=== PATIENT | female | born 1945 | race Caucasian/White ===

== ENCOUNTER 2020-07-24 11:34 | Emergency (ER) | payer MEDICARE, OTHER, SELFPAY ==
[2020-07-24 11:49] VITALS: BP 155/94; PULSE 75; RESP 18; TEMP 36.8; O2SAT 98; BMI 23.3
--- NOTE | 2020-07-24 11:52 | XR_ITS ---
PROCEDURE: XR LUMBAR SPINE 2-3V CLINICAL INDICATION: fall COMPARISON: No exams were available for comparison FINDINGS: The lumbar spine is tilted to the right possibly due to positioning of the patient and or possibly due to muscle spasm. There is disc space narrowing and marginal osteophytic spurring at the L2-3 and L3-4 levels. There is no acute compression fracture. The SI joints are normal. There multiple surgical clips or eliane in a circumferential pattern lower mid abdomen probably due to previous ventral hernia repair . IMPRESSION: Degenerate changes lower lumbar spine, no acute bony pathology noted Dictated by: Dr. Eulalio Huerta MD 07/24/2020 14:39 Dr. Eulalio Huerta MD in [place] 07/24/2020 14:39
--- NOTE | 2020-07-24 11:52 | XR_ITS ---
PROCEDURE: XR WRIST LT MIN 3V CLINICAL INDICATION: fall COMPARISON: No exams were available for comparison FINDINGS: The distal radius and ulna appear intact. The carpal bones all appear normal. The soft tissues are normal. IMPRESSION: No acute findings. Dictated by: Dr. Eulalio Huerta MD 07/24/2020 14:37 Dr. Eulalio Huerta MD in [place] 07/24/2020 14:37
--- NOTE | 2020-07-24 11:52 | XR_ITS ---
PROCEDURE: XR ELBOW LT MIN 3V CLINICAL INDICATION: fall COMPARISON: No exams were available for comparison FINDINGS: No fracture or dislocation. No lytic or blastic change. There is normal mineralization. The joint spaces are well-preserved. No significant degenerative/arthritic changes. No erosive changes evident. Other findings:None. IMPRESSION: No acute findings. Dictated by: Dr. Eulalio Huerta MD 07/24/2020 14:36 Dr. Eulalio Huerta MD in [place] 07/24/2020 14:36
--- NOTE | 2020-07-24 11:52 | XR_ITS ---
PROCEDURE: XR HIP LT 2-3V W/PELVIS CLINICAL INDICATION: fall COMPARISON: No exams were available for comparison FINDINGS: No fracture or dislocation is evident. No significant degenerative change though there is mild asymmetrical joint space narrowing of both hips. No lytic or blastic change. Unremarkable soft tissues. IMPRESSION: Mild osteoarthritic change of both hips Dictated by: Dr. Eulalio Huerta MD 07/24/2020 14:41 Dr. Eulalio Huerta MD in [place] 07/24/2020 14:41
--- NOTE | 2020-07-24 11:53 | XR_ITS ---
PROCEDURE: XR HUMERUS LT CLINICAL INDICATION: fall COMPARISON: No exams were available for comparison FINDINGS: No fracture or dislocation. No lytic or blastic change. There is normal mineralization. The joint spaces are well-preserved. No significant degenerative/arthritic changes. No erosive changes evident. Other findings:None. IMPRESSION: No acute findings. Dictated by: Dr. Eulalio Huerta MD 07/24/2020 14:36 Dr. Eulalio Huerta MD in [place] 07/24/2020 14:36
--- NOTE | 2020-07-24 11:54 | XR_ITS ---
PROCEDURE: XR RIBS LT 2V CLINICAL INDICATION: fall COMPARISON: CR [id number] VIEWS from 01/23/2014 FINDINGS: The lung kwon are well expanded and appear clear of infiltrate. All left ribs 1 through 12 are visualized and appear intact with no evidence of recent or old fracture. There is no pneumothorax. Cardiac size is normal and there is no pleural fluid. There is a small to moderate-sized hiatal hernia. There degenerate changes of both shoulders with bilateral high-riding humeral heads IMPRESSION: No acute findings. Dictated by: Dr. Eulalio Huerta MD 07/24/2020 14:35 Dr. Eulalio Huerta MD in [place] 07/24/2020 14:35
--- NOTE | 2020-07-24 11:56 | HMH.EDUTC ---
[facility] [place] Clinical Impression: Contusion Qualifiers: Encounter type: initial encounter Contusion area: hip Laterality: left Qualified Code(s): S70.02XA - Contusion of left hip, initial encounter Disposition: Home, Self-Care Condition on Discharge: Good Instructions: DI for Rib Contusion, DI for Contusion Additional Instructions: ice for 20 mins may repeat once a hour as need Tylenol or Motrin as needed follow up with pcp if symptoms worsen or no improvement return or be seen in ed Referrals: Yudelka Noel [Primary Care Provider] - Time of Disposition: 13:41 Medical Decision Making - Nick Inquiry Pt receiving controlled substance: No Vital Signs: 07/24/20 11:49 Temperature 98.2 F Temperature Source Oral Pulse Rate [Right Brachial] 75 Respiratory Rate 18 Blood Pressure [Right Arm] 155/94 H Blood Pressure Mean [Right Arm] 114 Blood Pressure Source [Right Arm] Automatic Cuff Blood Pressure Position [Right Arm] Sitting 02 Sat by Pulse Oximetry 98 Oxygen Delivery Method Room Air Orders (Tests/Meds): ORDERS Category Date Time Status XR elbow LT min 3V Stat Exams 07/24/20 11:52 Taken XR hip LT 2-3V w/pelvis Stat Exams 07/24/20 11:52 Taken XR humerus LT Stat Exams 07/24/20 11:53 Taken XR lumbar spine 2-3V Stat Exams 07/24/20 11:52 Taken XR ribs LT 2V Stat Exams 07/24/20 11:54 Taken XR wrist LT min 3V Stat Exams 07/24/20 11:52 Taken [facility] [place] - General Chief complaint: Urgent Treatment Center Stated complaint: [id number] left ribs and elbow,home accident Time Seen by Provider: 07/24/20 11:56 Mode of Arrival: Ambulatory Source of Information: Patient Limitations: No Limitations Description of Symptoms (Recalled from Triage Doc. by RN): PATIENT STATES APPROX 2200 SHE WAS STEPPING OVER HER DOG AND FELL. C/O PAIN TO LEFT SIDE AND LEFT ELBOW/UPPER ARM. DENIES HITTING HEAD, LOC HEENT Symptoms (Recalled from RN notes): No Resp Symptoms (Recalled from RN notes): No Skin Symptoms (Recalled from RN notes): No MS Symptoms (Recalled from RN notes): Yes Functional Status (Recalled from RN notes): WNL - History of Present Illness Provider Complaint: 74 yr old female presents for pain on left side s/p fall last pm. Pt states she tried to not step on her dog but missed the step and fell down 4 steps and landed on the landing on left side. c/o of left arm,elbow, back,rib and hip pain. denies soa. - Related Data Home Medications Medication Instructions Recorded Confirmed Baclofen [Lioresal 10mg tablet] 10 mg PO DAILY 07/24/20 07/24/20 Gabapentin [Gabapentin 400mg Cap] 400 mg PO BID 07/24/20 07/24/20 Meloxicam [Mobic 15 mg tab] 15 mg PO DAILY 07/24/20 07/24/20 Temazepam [Restoril] 30 mg PO HS 07/24/20 07/24/20 clonazePAM [Clonazepam] 0.5 mg PO QID 07/24/20 07/24/20 Allergies Allergy/AdvReac Type Severity Reaction Status Date / Time morphine Allergy Unknown Verified 06/08/19 11:23 sulfamethoxazole Allergy Unknown Verified 06/08/19 11:23 [From Bactrim] trimethoprim [From Bactrim] Allergy Unknown Verified 06/08/19 11:23 - Worker's Comp Is this a Worker's Comp case?: No H History - Hepatitis A Screen Drug use history?: No High risk sexual behaviors?: No History of sexually transmitted infection?: No Currently employed?: No Childcare worker?: No Do you have indoor plumbing?: Yes Do you have electricity?: Yes Attestation statement:: This patient has been screened for Hepatitis A risk factors. I have reviewed the patient's past medical history: Yes - Social History Alcohol Intake: never Occupational Status: other ROS Obtained: Yes Systems reviewed as appropriate & no additional complaints - Constitutional Constitutional: Reports system reviewed and no additional complaints, except as docu, Denies fever(s) - Eyes Eyes: Reports system reviewed and no additional complaints, except as docu, Denies change in vision - ENT Ears, Nose, Mouth, and Throat:
[2020-07-24 13:42] VITALS: BP 155/94; PULSE 75; RESP 18; TEMP 36.8; O2SAT 98
== END 2020-07-24 13:45 | disposition home or self-care (01) ==
PROVIDERS: Emergency Provider Nurse Practitioner Family; PCP Family Medicine
DX: S70.02XA Contusion of left hip, initial encounter (principal); W01.0XXA Fall on same level from slipping, tripping and stumbling without subsequent striking against object, initial encounter; Y92.019 Unspecified place in single-family (private) house as the place of occurrence of the external cause; Z88.2 Allergy status to sulfonamides; Z88.5 Allergy status to narcotic agent
CPT/HCPCS: 71100; 72100; 73060; 73080; 73110; 73502; 99201

== ENCOUNTER 2022-06-28 09:36 | Emergency (ER) | payer MEDICARE, OTHER, SELFPAY ==
[2022-06-28 09:42] VITALS: BP 138/80; PULSE 108; RESP 18; O2SAT 97; BMI 23.3
[2022-06-28 09:57] VITALS: BP 138/80; PULSE 108; RESP 18; TEMP 36.8; O2SAT 97; BMI 23.3
--- NOTE | 2022-06-28 10:03 | EXP.UTC ---
Discharge Plan Disposition Patient Disposition: Home, Self-Care Condition: Good Prescriptions Prescriptions: New methylprednisolone 4 mg Tablets,Dose Pack 4 mg PO DIRECTED Qty: 21 0RF triamcinolone acetonide 0.1 % cream 1 applic topical BID Qty: 30 0RF No Action meloxicam 15 MG tablet 15 mg PO DAILY clonazepam 0.5 MG tablet 0.5 mg PO QID gabapentin 400 MG capsule 400 mg PO BID temazepam 30 MG capsule 30 mg PO HS baclofen 10 MG tablet 10 mg PO DAILY Referrals Follow up/Referrals: Yudelka Noel [Primary Care Provider] - See instructions Clinical Impressions Clinical Impression: Accidental insect sting Instructions Patient Instructions: Insect Bites and Stings Discharge ED Provider: Gerry Fernandez [facility] [place] General Stated complaint: multiple bee stings Mode of Arrival: Ambulatory Source of Information: Patient Limitations: No Limitations Time Seen by Provider: 06/28/22 09:49 Description of Symptoms (Recalled from Triage Doc. by RN): BEE STING TO RIGHT THIGH HEENT Symptoms (Recalled from RN notes): No Resp Symptoms (Recalled from RN notes): No Skin Symptoms (Recalled from RN notes): Yes MS Symptoms (Recalled from RN notes): No Functional Status (Recalled from RN notes): NA History of Present Illness Provider Complaint: She states that she was stung 4 times on her right hip by a wasp yesterday. She has continued to have swelling and itching of the sites on her right hip. Related Data Home Medications Medication Instructions Recorded Confirmed baclofen 10 mg tablet 10 mg PO DAILY BACK PAIN 07/24/20 07/24/20 clonazepam 0.5 mg tablet 0.5 mg PO QID Anxiety 07/24/20 07/24/20 gabapentin 400 mg capsule 400 mg PO BID Pain 07/24/20 07/24/20 meloxicam 15 mg tablet 15 mg PO DAILY BACK PAIN 07/24/20 07/24/20 temazepam 30 mg capsule 30 mg PO HS SLEEP 07/24/20 07/24/20 Previous Rx's Medication Instructions Recorded methylprednisolone 4 mg tablets in 4 mg PO DIRECTED #21 tabs 06/28/22 a dose pack triamcinolone acetonide 0.1 % 1 applic topical BID #30 grams 06/28/22 topical cream Allergies Allergy/AdvReac Type Severity Reaction Status Date / Time morphine Allergy Unknown Verified 06/08/19 11:23 sulfamethoxazole Allergy Unknown Verified 06/08/19 11:23 [From Bactrim] trimethoprim [From Bactrim] Allergy Unknown Verified 06/08/19 11:23 Worker's Comp Is this a Worker's Comp case?: No PFSH [facility] Social History Smoking Status: Never smoker alcohol intake: never current occupational status: other Travel in the last 8 weeks: None ROS Obtained: Yes All systems reviewed & no additional complaints except as documented Constitutional Constitutional: Reports system reviewed and no additional complaints, except as documented, Denies chills and Denies fever(s) Eyes Eyes: Denies eye discharge ENT Ears, Nose, Mouth, and Throat: Denies dysphagia, Denies sore throat and Denies throat swelling Cardiovascular Cardiovascular: Denies chest pain and Denies dyspnea Respiratory Respiratory: Denies chest congestion, Denies cough and Denies dyspnea Gastrointestinal Gastrointestingal: Denies abdominal pain, constipation, diarrhea, dysphagia, nausea or vomiting Musculoskeletal Musculoskeletal: Denies arthralgias Integumentary/Breasts Skin/Breast: Denies rash Neurologic Neurologic: Denies paresthesias Allergic/Immunologic Allergic/Immunologic: Denies throat swelling Physical Exam General General appearance: alert and in no apparent distress Head Head exam: atraumatic, normocephalic and normal inspection Eye Eye exam: Present normal appearance, PERRL and EOMI ENT ENT exam: Present normal exam, normal oropharynx, mucous membranes moist, TM's normal bilaterally and normal external ear exam Neck Neck exam: Present normal inspection, full ROM and trachea midline; Absent meningismus or lymphadenopathy [facility]
[2022-06-28 10:50] VITALS: BP 138/80; PULSE 108; RESP 18; TEMP 36.8; O2SAT 97
== END 2022-06-28 10:50 | disposition home or self-care (01) ==
LOC: ER 09:44 → UTC 09:44
PROVIDERS: Emergency Provider Nurse Practitioner Family; PCP Family Medicine
DX: T63.441A Toxic effect of venom of bees, accidental (unintentional), initial encounter (principal)
CPT/HCPCS: 96372; 99212; G0463

== ENCOUNTER → 2023-03-04 11:15 | Outpatient (CLI) | payer MEDICARE, OTHER, SELFPAY ==
--- NOTE | 2023-03-04 11:25 | XR_ITS ---
FINAL REPORT CLINICAL HISTORY: PNEUMONIA FINDINGS: 2 views of the chest were obtained . The heart is normal in size. There is a large hiatal hernia. The mediastinum is within normal limits. The lungs are clear. There is no pneumothorax. Osseous structures are unremarkable. IMPRESSION: No acute cardiopulmonary process. Reviewed, Interpreted and Dictated by Cleo Sweeney MD Transcribed by Phyllis Adams Authenticated and [facility]
== END ==
PROVIDERS: PCP Family Medicine; Visit Provider Family Medicine
DX: J18.9 Pneumonia, unspecified organism (principal)
CPT/HCPCS: 71046

== ENCOUNTER 2023-06-24 10:01 | Outpatient (CLI) | payer MEDICARE, OTHER, SELFPAY ==
[2023-06-24 10:09] VITALS: BMI 23.3
[2023-06-24 10:27] LABS: Albumin Level 4.2 g/dl (3.5-5.0)
[2023-06-24 10:30] LABS: Calcium 9.5 mg/dl (8.4-10.2); Creatinine Clearance Estimated 45 mL/min (50-200); Estimated Glomerular Filt Rate 48 ml/min (>60); GFR (African American) 58 ML/MIN (>60)
[2023-06-24 10:51] VITALS: BP 138/80; PULSE 82; RESP 18; O2SAT 97
[2023-06-24 11:10] VITALS: BP 137/82; PULSE 81; RESP 18; O2SAT 97
== END 2023-06-24 11:10 | disposition home or self-care (01) ==
LOC: INF 10:02
PROVIDERS: PCP Family Medicine; Visit Provider Family Medicine
DX: M81.0 Age-related osteoporosis without current pathological fracture (principal)
CPT/HCPCS: 82040; 82310; 82565; 96374; J3489

== ENCOUNTER 2025-06-02 09:50 | Outpatient (CLI) | payer MEDICARE, OTHER, SELFPAY ==
--- NOTE | 2025-06-02 10:03 | XR_ITS ---
FINAL REPORT TECHNIQUE: Standing thoracolumbar spine for scoliosis evaluation CLINICAL HISTORY: .sciolosis COMPARISON: None FINDINGS: THORACOLUMBAR STANDING SPINE: 3 standing views of the thoracolumbar spine were obtained. There is 30 degrees of levoscoliosis of the lumbar spine. A large hiatal hernia is identified. There is marked disc space narrowing noted at the L2-3, L3-4, and L4-5 levels. IMPRESSION: 30 degrees of levoscoliosis of the lumbar spine, with degenerative changes present as well. A large hiatal hernia is present. Reviewed, Interpreted and Dictated by Julian Mcfarland MD Transcribed by Adia Fernandez Authenticated and [facility]
--- NOTE | 2025-06-02 10:03 | XR_ITS ---
FINAL REPORT TECHNIQUE: 3 views CLINICAL HISTORY: .neck pain COMPARISON: None FINDINGS: AP, lateral and odontoid views of the cervical spine were obtained. There is no prior exam for comparison. There is no acute fracture or malalignment. Vertebral body height is preserved. There is moderate disc space narrowing of the C5-6 level. Posterior osteophytes are noted. Heterotrophic changes of degenerative disc disease are present. The precervical soft tissues are normal. IMPRESSION: Degenerative changes, with no acute process. Reviewed, Interpreted and Dictated by Julian Mcfarland MD Transcribed by Adia Fernandez Authenticated and [facility]
--- NOTE | 2025-06-02 10:04 | XR_ITS ---
FINAL REPORT CLINICAL HISTORY: PAIN COMPARISON: None FINDINGS: LEFT HIP: 3 views of the left hip demonstrate no acute fracture or dislocation. The joint spaces appear normal. The visualized bony structures are well aligned. No soft tissue abnormality is seen. There are anchors in the lower abdominal wall secondary to prior mesh placement. IMPRESSION: No acute bony abnormality. Reviewed, Interpreted and Dictated by Julian Mcfarland MD Transcribed by Adia Fernandez Authenticated and [facility]
== END 2025-06-02 23:59 | disposition home or self-care (01) ==
LOC: RAD 09:58
PROVIDERS: PCP Family Medicine; Visit Provider Family Medicine
DX: M41.86 Other forms of scoliosis, lumbar region (principal); M47.812 Spondylosis without myelopathy or radiculopathy, cervical region; M47.816 Spondylosis without myelopathy or radiculopathy, lumbar region; K44.9 Diaphragmatic hernia without obstruction or gangrene; M25.559 Pain in unspecified hip
CPT/HCPCS: 72040; 72081; 73502

== ENCOUNTER 2025-08-13 09:06 | Outpatient (CLI) | payer MEDICARE, OTHER, SELFPAY ==
--- NOTE | 2025-08-13 09:11 | XR_ITS ---
FINAL REPORT CLINICAL HISTORY: SCREENING prior 2015 COMPARISON: None FINDINGS: Using L1-4, the bone mineral density of the spine is 1.067 g/cm2, corresponding to T-score of -0.2. Using the left hip, the bone mineral density of the femoral neck is 0.668 g/cm2, corresponding to a T-score of -2.2. Using the right hip, the bone mineral density of the femoral neck is 0.580 g/cm2, corresponding to a T-score of -2.4. NOTE: T-score: Standard deviation compared with peak bone mass of young adult mean. *Following the recommendations of the International Society of Bone densitometry, classification of hip BMD is based on the lower of two T-scores; total hip or femoral neck. IMPRESSION: Normal bone mineral density of the lumbar spine, although prominent sclerotic changes in the lumbar spine may produce an artificially elevated bone mineral density. Diminished bone mineral density of the bilateral hips, corresponding to osteopenia. Reviewed, Interpreted and Dictated by Michelle Martinez MD Transcribed by Adia Fernandez Authenticated and [facility]
== END 2025-08-13 23:59 | disposition home or self-care (01) ==
LOC: RAD 09:08
PROVIDERS: PCP Family Medicine; Visit Provider Family Medicine
DX: M85.88 Other specified disorders of bone density and structure, other site (principal)
CPT/HCPCS: 77080